=== PATIENT | male | born 1990 | race Hispanic/Latino ===

== ENCOUNTER → 2023-11-20 09:47 | Outpatient (REF) | payer OTHER, SELFPAY ==
[2023-11-20 11:29] LABS: Hematocrit 44.6 % (39.0-52.0); Hemoglobin 14.6 g/dL (13.0-18.0); Mean Corp Hgb Conc. 32.7 g/dL (33.0-37.0); Mean Corpuscular Hgb 27.8 pg (27.0-31.0); Mean Platelet Volume 10.9 fL (7.4-10.4); Platelet Count 217 10^3/uL (130-400); Red Blood Cell Count 5.25 10^6/uL (4.70-6.10); Red Cell Dist. Width 13.2 % (11.5-14.5); White Blood Cell Count 6.2 10^3/uL (4.8-10.8)
[2023-11-20 13:28] LABS: ALT (SGPT) 24 U/L (0-50); AST (SGOT) 18 U/L (17-59); Albumin 4.6 g/dl (3.5-5.0); Alkaline Phosphatase 63 U/L (38-126); Blood Urea Nitrogen 19 mg/dl (9-20); Calcium 9.1 mg/dl (8.4-10.2); Carbon Dioxide 27 mmol/L (22-30); Chloride 104 mmol/L (98-107); Glucose 74 mg/dl (70-99); HDL Cholesterol 66 mg/dl; LDL Cholesterol, Calculated 142 mg/dl; Potassium 4.4 mmol/L (3.5-5.1); Sodium 137 mmol/L (135-145); Total Bilirubin 0.5 mg/dl (0.2-1.3); Total Cholesterol 224 mg/dl (50-199); Total Protein 7.6 g/dl (6.3-8.2); Triglyceride 81 mg/dl (10-149); Very Low Density Lipoprotein 16 mg/dl (0-30); eGFR > 60.00
[2023-11-20 13:31] LABS: Vitamin D, 25-OH*** 30.3 ng/mL (30-80)
[2023-11-20 14:06] LABS: Glycohemoglobin (HgbA1c) 5.7 % (4.0-5.6)
== END ==
LOC: REG 09:47
PROVIDERS: ATTENDING PHYSICIAN Nurse Practitioner Adult Health
DX: R73.03 Prediabetes (principal); E55.9 Vitamin D deficiency, unspecified
CPT/HCPCS: 36415; 80053; 80061; 82306; 83036; 85027

== ENCOUNTER → 2024-05-20 09:29 | Outpatient (REF) | payer OTHER, SELFPAY ==
[2024-05-20 11:22] LABS: Vitamin D, 25-OH*** 27.4 ng/mL (30-80)
[2024-05-20 11:28] LABS: Glycohemoglobin (HgbA1c) 5.5 % (4.0-5.6)
== END ==
LOC: REG 09:29
PROVIDERS: ATTENDING PHYSICIAN Nurse Practitioner Adult Health
DX: R73.03 Prediabetes (principal); E55.9 Vitamin D deficiency, unspecified
CPT/HCPCS: 36415; 82306; 83036

== ENCOUNTER → 2024-11-18 09:37 | Outpatient (REF) | payer OTHER, SELFPAY | LOC: CLINIC 09:37 | PROVIDERS: ATTENDING PHYSICIAN Nurse Practitioner Adult Health | DX: E55.9 Vitamin D deficiency, unspecified (principal) | CPT/HCPCS: 36415; 82306 ==

== ENCOUNTER → 2025-02-10 09:37 | Outpatient (REF) | payer OTHER, SELFPAY ==
[2025-02-10 10:58] LABS: Vitamin D, 25-OH*** 31.9 ng/mL (30-80)
== END ==
LOC: REG 09:37
PROVIDERS: ATTENDING PHYSICIAN Nurse Practitioner Adult Health
DX: E55.9 Vitamin D deficiency, unspecified (principal)
CPT/HCPCS: 36415; 82306

== ENCOUNTER → 2025-05-07 09:51 | Outpatient (REF) | payer OTHER, SELFPAY | LOC: CLINIC 09:51 | DX: Z30.2 Encounter for sterilization (principal) | CPT/HCPCS: 88302 ==

== ENCOUNTER → 2025-05-20 09:55 | Outpatient (REF) | payer OTHER, SELFPAY ==
[2025-05-20 10:57] LABS: Hematocrit 43.1 % (39.0-52.0); Hemoglobin 14.3 g/dL (13.0-18.0); Mean Corp Hgb Conc. 33.2 g/dL (33.0-37.0); Mean Corpuscular Volume 83.9 fL (80.0-94.0); Platelet Count 220 10^3/uL (130-400); Red Cell Dist. Width 13.5 % (11.5-14.5)
[2025-05-20 11:50] LABS: Glycohemoglobin (HgbA1c) 5.3 % (4.0-5.6)
[2025-05-20 11:56] LABS: ALT (SGPT) 24 U/L (0-50); AST (SGOT) 17 U/L (17-59); Albumin 4.8 g/dl (3.5-5.0); Alkaline Phosphatase 42 U/L (38-126); Blood Urea Nitrogen 23 mg/dl (9-20); Calcium 9.5 mg/dl (8.4-10.2); Carbon Dioxide 28 mmol/L (22-30); Chloride 104 mmol/L (98-107); Glucose 74 mg/dl (70-99); HDL Cholesterol 67 mg/dl; LDL Cholesterol, Calculated 191 mg/dl; Potassium 4.8 mmol/L (3.5-5.1); Sodium 138 mmol/L (135-145); Total Protein 7.8 g/dl (6.3-8.2); Very Low Density Lipoprotein 17 mg/dl (0-30); eGFR > 60.00
[2025-05-20 12:29] LABS: Vitamin D, 25-OH*** 25.1 ng/mL (30-80)
== END ==
LOC: REG 09:55
PROVIDERS: ATTENDING PHYSICIAN Nurse Practitioner Adult Health
DX: E55.9 Vitamin D deficiency, unspecified (principal); R73.03 Prediabetes; Z00.00 Encounter for general adult medical examination without abnormal findings
CPT/HCPCS: 36415; 80053; 80061; 82306; 83036; 85027